=== PATIENT | male | born 1980 | race Caucasian/White ===

== ENCOUNTER 2019-10-13 10:46 | Emergency (ER) | payer SELFPAY ==
[2019-10-13 10:47] VITALS: BP 162/88; PULSE 99; RESP 16; TEMP 36.6; O2SAT 98; BMI 32.7
--- NOTE | 2019-10-13 10:57 | XR_ITS ---
WS: [id number] Portable AP upright chest, 10/13/2019 Clinical Data: tachy Comparison: None. Findings: No nodules, masses or effusions are seen. The heart is normal. The pulmonary vascularity is not increased. Patchy bibasilar opacities could represent early pneumonia or atelectasis. No pneumot horax is seen. XR/XR chest 1V portable [id number] Impression: 1. Bibasilar opacities which could represent minimal pneumonia and/or atelectas is. 2. Recommend repeat chest x-ray in 2-3 days.
--- NOTE | 2019-10-13 10:57 | ECG_ITS ---
Measurements Intervals [place] Rate: 94 P: 40 ME: 144 QRS: 83 QRSD: 86 T: 69 QT: 341 QTc: 426 SINUS RHYTHM No previous ECG available for comparison Electronically Signed On 10-14-2019 9:00:30 CDT by Moi Jacobo M.D. [id number]
--- NOTE | 2019-10-13 11:03 | ED_ITS ---
HPI - General Adult General: Chief complaint: General Medical Stated complaint: heart is racing Time Seen by Provider: 10/13/19 10:56 History of Present Illness: HPI narrative: Patient had flulike symptoms last week. Took Tamiflu that his dad did not use. Patient said he had been feeling okay for the last couple days. Drink couple cups of coffee this morning empty stomach and starting the shakes. chased a Cow Around in his barn a lot this morning then came in town ate some food. Continued with the shakes he has had fast heart rate just did not feel right denies any chest pain not really short of breath but he does feel tight denies fever chills. Has been drinking plenty of fluids. MD complaint: Tachycardia Onset (ago): hour(s) Severity: moderate Associated symptoms: Reports palpitations; Deny dyspnea, headache(s), nausea, rash or vomiting Review of Systems Narrative: Feels anxious Const: Denies: fever, chills or body aches Eyes: Denies: change in vision or blurry vision ENMT: Denies: throat pain or nasal congestion Card: Reports: palpitations Resp: Denies: shortness of breath, productive cough or non-productive cough GI: Denies: abdominal pain, nausea or vomiting : Denies: difficulty urinating Musc: Denies: extremity pain Skin/Breast: Denies: rash Neuro: Denies: headache Psych: Denies: anxiety or depression Kash/Lymph: Denies: easy bruising PFSH ED PFSH: Social History Smoking and tobacco status: current every day smoker Physical Exam Const: COMMON NORMALS: no apparent distress, average body habitus and oriented x3 HENMT: COMMON NORMALS: normocephalic HEAD & SCALP: normal to inspection and normocephalic FACE & SINUS: normal facial exam Eye: COMMON NORMALS: conjunctivae normal GENERAL EYE: normal appearance of both eyes CONJUNCTIVA: Yes conjunctivae normal Neck/C-Spine: COMMON NORMALS: no JVD Chest: COMMONS NORMALS: inspection of chest normal Resp: COMMON NORMALS: normal respiratory effort and clear to auscultation bilaterally AUSCULTATION: clear to auscultation bilaterally Cardio: COMMON NORMALS: no JVD, regular rate and regular rhythm RATE: regular rate RHYTHM: regular rhythm GI: COMMON NORMALS: normal to inspection, nondistended, normoactive bowel sounds Extremity: COMMON NORMALS: normal to inspection and full ROM Neuro: COMMON NORMALS: oriented x3 Course Vital Signs: Vital signs: Vital Signs Temperature 98 F 10/13/19 10:47 Pulse Rate 99 10/13/19 10:47 Respiratory Rate 16 10/13/19 10:47 Blood Pressure 162/88 10/13/19 10:47 Pulse Oximetry 98 10/13/19 10:47 MDM - General Adult MDM Narrative: Medical decision making narrative: Discussed x-ray results with patient the need for follow-up Lab Data: Labs: Lab Results 10/13/19 10/13/19 10/13/19 Range/Units 11:06 11:06 11:06 WBC 6.2 (4.0-10.0) 10^3/ uL RBC 4.96 (4.1-5.3) 10^6/u L Hgb 14.6 (11.7-16.6) g/dL Hct 44.1 (42.0-52.0) % MCV 88.9 (80-94) fL MCH 29.4 (28.0-34.0) pg MCHC 33.1 (30.0-36.0) g/dL RDW 13.4 (12.1-15.1) % Plt Count 294 (130-400) 10^3/c mm MPV 10.9 H (7.4-10.4) fL Neut % (Auto) 64.8 % Lymph % (Auto) 24.6 % [place] % (Auto) 7.6 % Eos % (Auto) 2.1 % Baso % (Auto) 0.6 % Neut # (Auto) 4.0 (1.8-7.7) 10^3/u L Lymph # (Auto) 1.5 (0.8-4.8) 10^3/u L [place] # (Auto) 0.5 (0.2-0.9) 10^3/u L Eos # (Auto) 0.1 (0.0-0.8) 10^3/u L Baso # (Auto) 0.0 (0.0-0.1) 10^3/u L Nucleated RBC % (a uto) 0 % Nucleated RBCs # 0.0 /100WBC Sodium 141 (136-145) mmol/L Potassium 3.9 (3.5-5.1) mmol/L Chloride 104 (98-107) mmol/L Carbon Dioxide 24 (22-29) mmol/L Anion Gap 16.9 (5-19) BUN 13 (6-20) mg/dL Creatinine 0.9 (0.7-1.2) mg/dL GFR Calculation 94.4 (90-130) mL/min Glucose 139 H (65-115) mg/dL Calculated Osmolal ity 290 (285-295) mOsm/k g Calcium 9.8 (8.5-10.5) mg/dL Total Bilirubin 0.3 (0.15-1.2) mg/dL AST 21 (0-40) U/L ALT 38 (0-41) U/L Alkaline Phosphata se 62 (40-130) IU/L Troponin T Gen 5 n g/L 6 (0-15) ng/mL Total Protein 7.2 (6.6-8.7) g/dL Albumin 4.2 (3.5-5.2) g/dL Globulin 3.0 (1.3-4.6) g/dL EKG Data^: EKG 1: EKG interpretation date: 10/13/19 Interpretation: NSR, 94 bpm Computer generated interpretation: Chest X-Ray 10/13/19 10:57 Impression: 1. Bibasilar opacities which could represent minimal pneumonia and/or atelectasis. 2. Recommend repeat chest x-ray in 2-3 days. Discharge Plan Discharge Patient Disposition: Home, Self-Care Clinical Impression: Bronchitis Condition: Stable Prescriptions: New Zithromax Z-Neil 250 mg tablet See Rx Instructions .ROUTE .COMPLEX Qty: 6 RF: 0 albuterol sulfate 90 mcg/actuation HFA aerosol inhaler 2 inh INHALATION Q4H PRN (Reason: shortness of breath or wheezing) Qty: 8.5 RF: 0 Discharge Orders: Discharge Order (Routine); Ordered 10/13/19 Ordered By: Geoff Wynne Referrals: Landry Frye MD [Primary Care Provider] - Discharge Diet: Usual diet Discharge Activity: Increase activity as tolerated Patient Instructions: Acute Bronchitis (ED) Activity Restrictions/Additional Instructions: Follow-up with medical provider in 2 to 3 days for repeat chest x-ray. take medications as prescribed. Return to the ER or your medical provider if condition worsens. Please read and understand discharge instructions. If any questions ask please. Coding Level of Care Code ED Knife Changer for Chg Fwd Exam Comprehensive
[2019-10-13 11:11] LABS: Basophils % 0.6 %; Eosinophils # 0.1 10^3/uL (0.0-0.8); Eosinophils % 2.1 %; Hematocrit 44.1 % (42.0-52.0); Hemoglobin 14.6 g/dL (11.7-16.6); Lymphocytes # 1.5 10^3/uL (0.8-4.8); Lymphocytes % 24.6 %; Mean Corpuscular HGB Conc 33.1 g/dL (30.0-36.0); Mean Corpuscular Hemoglobin 29.4 pg (28.0-34.0); Mean Corpuscular Volume 88.9 fL (80-94); Mean Platelet Volume 10.9 fL (7.4-10.4); Monocytes # 0.5 10^3/uL (0.2-0.9); Monocytes % 7.6 %; Neutrophils % 64.8 %; Nucleated Red Blood Cells % 0 %; Platelet Count 294 10^3/cmm (130-400); Red Blood Count 4.96 10^6/uL (4.1-5.3); Red Cell Distribution Width 13.4 % (12.1-15.1); White Blood Count 6.2 10^3/uL (4.0-10.0)
[2019-10-13 11:30] LABS: Alanine Aminotransferase 38 U/L (0-41); Albumin Level 4.2 g/dL (3.5-5.2); Alkaline Phosphatase 62 IU/L (40-130); Anion Gap 16.9 (5-19); Aspartate Amino Transferase 21 U/L (0-40); Blood Urea Nitrogen 13 mg/dL (6-20); Calcium 9.8 mg/dL (8.5-10.5); Carbon Dioxide 24 mmol/L (22-29); Chloride 104 mmol/L (98-107); Creatinine Clr Calc Pharmacy 150.4601; Glomerular Filtration Rate 94.4 mL/min (90-130); Glucose 139 mg/dL (65-115); Osmolality Calculated 290 mOsm/kg (285-295); Potassium 3.9 mmol/L (3.5-5.1); Sodium 141 mmol/L (136-145); Total Bilirubin 0.3 mg/dL (0.15-1.2); Total Protein 7.2 g/dL (6.6-8.7)
[2019-10-13 11:32] LABS: Troponin T (5th) Once 6 ng/mL (0-15)
[2019-10-13 12:28] VITALS: BP 141/90; PULSE 88; RESP 18; O2SAT 94
== END 2019-10-13 12:30 | disposition home or self-care (01) ==
PROVIDERS: Emergency Provider Nurse Practitioner Family; PCP Specialist
DX: J40 Bronchitis, not specified as acute or chronic (principal); F17.200 Nicotine dependence, unspecified, uncomplicated
CPT/HCPCS: 12345; 36415; 71045; 80053; 84484; 85025; 93005; 99282; 99283

== ENCOUNTER 2020-02-08 12:47 | Emergency (ER) | payer SELFPAY ==
[2020-02-08] VITALS (8 sets, daily range): BP systolic 113–141; BP diastolic 73–91; PULSE 75–90; RESP 16–23; TEMP 36.5; O2SAT 94–98; BMI 32.7
--- NOTE | 2020-02-08 12:51 | ECG_ITS ---
[facility] Test Date: 2020-02-08 Pat Name: Raj Krause Department: Room: Gender: Male Jira Developer: : 1980 Requested By: Cherrie Belcher Order Number: [id number] Alan MD: Nabil Munoz M.D. Measurements Intervals [place] Rate: 99 P: 25 PA: 137 QRS: 86 QRSD: 88 T: 44 QT: 330 QTc: 424 Interpretive Statements SINUS RHYTHM Compared to ECG 10/13/2019 10:55:20 No significant changes Electronically Signed On 02-08-2020 21:42:10 CDT by Nabil Munoz M.D. [id number] f
--- NOTE | 2020-02-08 12:51 | XRR_ITS ---
PROCEDURE INFORMATION: Exam: XR Chest, 1 View Exam date and time: 02/08/2020 12:52 PM Age: 39 years old Clinical indication: Chest pain; Type not specified; Additional info: Cp TECHNIQUE: Imaging protocol: XR of the chest Views: 1 view. COMPARISON: CR XR chest 1V portable [id number] 10/13/2019 11:08 AM FINDINGS: Lungs: Unremarkable. No consolidation. Pleural space: Unremarkable. No pleural effusion. No pneumothorax. Heart/Mediastinum: Negative for acute cardiac disease Bones/joints: Unremarkable. Comparison to prior examination bilateral lower lobe interstitial densities which were previously visible have now resolved. XR/XR chest 1V portable [id number] IMPRESSION: Negative chest examination
--- NOTE | 2020-02-08 14:00 | W.ED.CHESTPA ---
HPI - Chest Pain General: Chief Complaint: Chest Pain Stated Complaint: CP Time Seen by Provider: 02/08/20 13:54 Source: patient Mode of arrival: ambulatory Limitations: no limitations History of Present Illness: HPI narrative: 39-year-old male male who states he has been having some dizziness, chest pain over the last 3 to 4 hours. Patient states the pain is been a pressure type pain. Patient denies any shortness of breath. Patient states that happened while he is outside working today. He states it is improved since he has been here. He states his pain is currently a 1 out of 10. Denies any vomiting. MD complaint: chest pain Associated symptoms: Deny abdominal pain, dyspnea, fever(s), nausea or vomiting Review of Systems Const: Denies: fever(s), chills, body aches or change in appetite Eyes: Denies: blurry vision or eye discomfort ENMT: Denies: throat pain or dental pain Card: Reports: chest pain Resp: Denies: dyspnea GI: Denies: abdominal pain, nausea, vomiting or diarrhea : Denies: dysuria Musc: Denies: neck pain or back pain Skin/Breast: Denies: rash Neuro: Denies: headache(s) Psych: Denies: depression Kash/Lymph: Denies: easy bruising All/Imm: Denies: urticaria PFSH ED PFSH: Social History Smoking and tobacco status: current every day smoker Physical Exam Const: COMMON NORMALS: no acute distress, patient oriented x3 and healthy appearing HENMT: COMMON NORMALS: normocephalic and atraumatic HEAD & SCALP: normocephalic and atraumatic Eye: COMMON NORMALS: Equal, round and reactive pupils present and EOMs intact bilaterally PUPIL: Yes Equal, round and reactive pupils present Neck/C-Spine: COMMON NORMALS: full ROM and supple Chest: COMMONS NORMALS: normal inspection of the chest and normal palpation of entire chest wall Resp: COMMON NORMALS: normal respiratory effort, No retractions, No use of accessory muscles and clear to auscultation bilaterally AUSCULTATION: clear to auscultation bilaterally Cardio: COMMON NORMALS: regular rate, regular rhythm and No murmurs present (Cardio) RATE: regular rate RHYTHM: regular rhythm GI: COMMON NORMALS: Normal to inspection, nondistended, normoactive bowel sounds present, Soft to palpation, non-tender and no masses PALPATION: Yes Soft to palpation Extremity: COMMON NORMALS: normal to inspection and full ROM Neuro: COMMON NORMALS: patient oriented x3, moves all extremities and no focal motor deficits Psych: COMMON NORMALS: mental status grossly normal, Normal thought process present and cooperative THOUGHT PROCESS: Normal thought process present Skin: COMMON NORMALS: no rashes or lesions noted and no wounds GENERAL SKIN EXAM: no rashes or lesions noted Course Vital Signs: Vital signs: Vital Signs Temperature 97.7 F 02/08/20 12:50 Pulse Rate 82 02/08/20 17:22 Respiratory Rate 23 H 02/08/20 17:22 Blood Pressure 114/79 02/08/20 17:22 Pulse Oximetry 94 02/08/20 17:22 MDM - Chest Pain MDM Narrative: Medical decision making narrative: Raj presents with chest pain that is atypical in nature. He does have some tenderness that is likely muscular. Patient's initial and repeat troponins are negative. He feels improved here and I feel he is stable for discharge. X-ray is normal and he has no signs of pulmonary embolism. Patient is to follow-up with primary care doctor in 3 to 5 days and return if worsening. Lab Data: Labs: Lab Results 02/08/20 02/08/20 02/08/20 Range/Units 14:12 14:12 14:12 WBC 9.2 (4.0-10.0) 10^3/ uL RBC 5.01 (4.1-5.3) 10^6/u L Hgb 15.4 (11.7-16.6) g/dL Hct 47.8 (42.0-52.0) % MCV 95.4 H (80-94) fL MCH 30.7 (28.0-34.0) pg MCHC 32.2 (30.0-36.0) g/dL RDW 13.3 (12.1-15.1) % Plt Count 238 (130-400) 10^3/c mm MPV 10.9 H (7.4-10.4) fL Neut % (Auto) 73.9 % Lymph % (Auto) 16.9 % [place] % (Auto) 5.7 % Eos % (Auto) 2.5 % Baso % (Auto) 0.8 % Neut # (Auto) 6.8 (1.8-7.7) 10^3/u L Lymph # (Auto) 1.6 (0.8-4.8) 10^3/u L [place] # (Auto) 0.5 (0.2-0.9) 10^3/u L Eos # (Auto) 0.2 (0.0-0.8) 10^3/u L Baso # (Auto) 0.1 (0.0-0.1) 10^3/u L Nucleated RBC % (a uto) 0 % Nucleated RBCs # 0.0 /100WBC Sodium 141 (136-145) mmol/L Potassium 4.5 (3.5-5.1) mmol/L Chloride 106 (98-107) mmol/L Carbon Dioxide 25 (22-29) mmol/L Anion Gap 14.5 (5-19) BUN 12 (6-20) mg/dL Creatinine 1.0 (0.7-1.2) mg/dL GFR Calculation 83.6 L (90-130) mL/min Glucose 102 (65-115) mg/dL Calculated Osmolal ity 288 (285-295) mOsm/k g Calcium 9.7 (8.5-10.5) mg/dL Total Bilirubin 0.2 (0.15-1.2) mg/dL AST 13 (0-40) U/L ALT 21 (0-41) U/L Alkaline Phosphata se 57 (40-130) IU/L Troponin T Baselin e 6 (0-15) ng/L Troponin T 120 Min ambler (0-15) ng/L Total Protein 6.9 (6.6-8.7) g/dL Albumin 4.6 (3.5-5.2) g/dL Globulin 2.3 (1.3-4.6) g/dL /01/22 Range/Units 16:12 WBC (4.0-10.0) 10^3/ uL RBC (4.1-5.3) 10^6/u L Hgb (11.7-16.6) g/dL Hct (42.0-52.0) % MCV (80-94) fL MCH (28.0-34.0) pg MCHC (30.0-36.0) g/dL RDW (12.1-15.1) % Plt Count (130-400) 10^3/c mm MPV (7.4-10.4) fL Neut % (Auto) % Lymph % (Auto) % [place] % (Auto) % Eos % (Auto) % Baso % (Auto) % Neut # (Auto) (1.8-7.7) 10^3/u L Lymph # (Auto) (0.8-4.8) 10^3/u L [place] # (Auto) (0.2-0.9) 10^3/u L Eos # (Auto) (0.0-0.8) 10^3/u L Baso # (Auto) (0.0-0.1) 10^3/u L Nucleated RBC % (a uto) % Nucleated RBCs # /100WBC Sodium (136-145) mmol/L Potassium (3.5-5.1) mmol/L Chloride (98-107) mmol/L Carbon Dioxide (22-29) mmol/L Anion Gap (5-19) BUN (6-20) mg/dL Creatinine (0.7-1.2) mg/dL GFR Calculation (90-130) mL/min Glucose (65-115) mg/dL Calculated Osmolal ity (285-295) mOsm/k g Calcium (8.5-10.5) mg/dL Total Bilirubin (0.15-1.2) mg/dL AST (0-40) U/L ALT (0-41) U/L Alkaline Phosphata se (40-130) IU/L Troponin T Baselin e (0-15) ng/L Troponin T 120 Min ambler 6.00 (0-15) ng/L Total Protein (6.6-8.7) g/dL Albumin (3.5-5.2) g/dL Globulin (1.3-4.6) g/dL Imaging Data^: CXR: Radiologist's impression: [address] [address] XRay Report Signed Patient: Raj Krause Unit #: [id number] : 1980 Age/Sex: 39 / M ADM Date: 02/08/20 Loc: ER Room/Bed: Attending Dr: Ordering Provider/Ordering MD: Cherrie Belcher MD Date of Service: 02/08/20 Procedure(s): XR chest 1V portable [id number] Accession Number(s): [id number] Report Number: [id number] PROCEDURE INFORMATION: Exam: XR Chest, 1 View Exam date and time: 02/08/2020 12:52 PM Age: 39 years old Clinical indication: Chest pain; Type not specified; Additional info: Cp TECHNIQUE: Imaging protocol: XR of the chest Views: 1 view. COMPARISON: CR XR chest 1V portable [id number] 10/13/2019 11:08 AM FINDINGS: Lungs: Unremarkable. No consolidation. Pleural space: Unremarkable. No pleural effusion. No pneumothorax. Heart/Mediastinum: Negative for acute cardiac disease Bones/joints: Unremarkable. Comparison to prior examination bilateral lower lobe interstitial densities which were previously visible have now resolved. XR/XR chest 1V portable [id number] IMPRESSION: Negative chest examination EKG Data^: EKG 1: Attestation: I personally reviewed and interpreted this EKG as follows: EKG interpretation date: 02/08/20 EKG interpretation time: 12:58 Interpretation: nsr hr [address] or t wave abnormalities qrs 88 qtc 386 EKG 2: Attestation: I personally reviewed and interpreted this EKG as follows: EKG interpretation date: 02/08/20 EKG interpretation time: 15:37 Interpretation: nsr hr [address] or t wave abnormalities qrs 85 qtc 382 Discharge Plan Discharge Patient Disposition: Home, Self-Care Clinical Impression: Chest pain Qualifiers: Chest pain type: unspecified Qualified Code(s): R07.9 - Chest pain, unspecified Condition: Stable Prescriptions: No Action No Known Home Medications RF: 0 Discharge Orders: Discharge Order (Routine); Ordered 02/08/20 Ordered By: Cherrie Belcher Referrals: Landry Frye MD [Primary Care Provider] - Discharge Diet: Advance as tolerated Discharge Activity: Resume usual activity Patient Instructions: Chest Pain (ED) Discharge Date/Time: 02/08/20 17:25 Coding Level of Care Code ED Christmas Tree Farm Manager for Chg Fwd Exam Comprehensive
[2020-02-08 14:18] LABS: Basophils # 0.1 10^3/uL (0.0-0.1); Basophils % 0.8 %; Eosinophils # 0.2 10^3/uL (0.0-0.8); Eosinophils % 2.5 %; Hematocrit 47.8 % (42.0-52.0); Hemoglobin 15.4 g/dL (11.7-16.6); Lymphocytes # 1.6 10^3/uL (0.8-4.8); Lymphocytes % 16.9 %; Mean Corpuscular HGB Conc 32.2 g/dL (30.0-36.0); Mean Corpuscular Hemoglobin 30.7 pg (28.0-34.0); Mean Corpuscular Volume 95.4 fL (80-94); Mean Platelet Volume 10.9 fL (7.4-10.4); Monocytes # 0.5 10^3/uL (0.2-0.9); Monocytes % 5.7 %; Neutrophils # 6.8 10^3/uL (1.8-7.7); Neutrophils % 73.9 %; Nucleated Red Blood Cells % 0 %; Platelet Count 238 10^3/cmm (130-400); Red Blood Count 5.01 10^6/uL (4.1-5.3); Red Cell Distribution Width 13.3 % (12.1-15.1); White Blood Count 9.2 10^3/uL (4.0-10.0)
[2020-02-08 14:36] LABS: Alanine Aminotransferase 21 U/L (0-41); Albumin Level 4.6 g/dL (3.5-5.2); Alkaline Phosphatase 57 IU/L (40-130); Anion Gap 14.5 (5-19); Aspartate Amino Transferase 13 U/L (0-40); Blood Urea Nitrogen 12 mg/dL (6-20); Calcium 9.7 mg/dL (8.5-10.5); Carbon Dioxide 25 mmol/L (22-29); Chloride 106 mmol/L (98-107); Globulin 2.3 g/dL (1.3-4.6); Glomerular Filtration Rate 83.6 mL/min (90-130); Glucose 102 mg/dL (65-115); Osmolality Calculated 288 mOsm/kg (285-295); Potassium 4.5 mmol/L (3.5-5.1); Sodium 141 mmol/L (136-145); Total Bilirubin 0.2 mg/dL (0.15-1.2); Total Protein 6.9 g/dL (6.6-8.7)
[2020-02-08 14:37] LABS: Troponin(5th) Baseline 6 ng/L (0-15)
--- NOTE | 2020-02-08 14:51 | ECG_ITS ---
[facility] Test Date: 2020-02-08 Pat Name: Raj Krause Department: Room: Gender: Male Primer Boxer: : 1980 Requested By: Cherrie Belcher Order Number: [id number] Alan MD: Nabil Munoz M.D. Measurements Intervals [place] Rate: 79 P: 67 MS: 151 QRS: 84 QRSD: 85 T: 54 QT: 347 QTc: 399 Interpretive Statements SINUS RHYTHM Early repolarization change Compared to ECG 02/08/2020 12:58:31 No significant changes Electronically Signed On 02-08-2020 21:46:51 CDT by Nabil Munoz M.D. [id number]
[2020-02-08 16:37] LABS: Troponin 5 2HR Delta 0 ABS# (0-10)
== END 2020-02-08 17:25 | disposition home or self-care (01) ==
PROVIDERS: Emergency Provider Emergency Medicine; PCP Specialist
DX: R07.9 Chest pain, unspecified (principal); F17.210 Nicotine dependence, cigarettes, uncomplicated
CPT/HCPCS: 12345; 36415; 71045; 80053; 84484; 85025; 93005; 99283; 99284

== ENCOUNTER 2020-09-28 01:18 | Emergency (ER) | payer SELFPAY ==
[2020-09-28 01:22] VITALS: BP 139/85; PULSE 85; RESP 18; TEMP 36.7; O2SAT 97; BMI 33.3
--- NOTE | 2020-09-28 01:32 | ED_ITS ---
HPI - Abdominal Pain General: Chief Complaint: Abdominal Pain Stated Complaint: stomach issues, light headed, shakes Time Seen by Provider: 09/28/20 01:19 Source: patient Mode of arrival: ambulatory Limitations: no limitations History of Present Illness: HPI narrative: 40-year-old male states he had a fall last week related on his back. He states he had some flank pain throughout the week but got much worse tonight. He states he had a severe right lower quadrant abdominal pain and flank pain with nausea. Denies any worsening of proving factors. Denies any vomiting or diarrhea. Patient denies any fevers. States it is worse with movement improved with rest. Denies any mid back pain. Associated Symptoms: Denies chills, dysuria and fever(s) Review of Systems Const: Denies: fever(s), chills, body aches or change in appetite Eyes: Denies: blurry vision or eye discomfort ENMT: Denies: throat pain or dental pain Card: Denies: chest pain Resp: Denies: dyspnea GI: Reports: abdominal pain : Denies: dysuria Musc: Denies: neck pain or back pain Skin/Breast: Denies: rash Neuro: Denies: headache(s) Psych: Denies: depression Kash/Lymph: Denies: easy bruising All/Imm: Denies: urticaria PFSH ED PFSH: Social History Smoking and tobacco status: current every day smoker Physical Exam Const: COMMON NORMALS: no acute distress, patient oriented x3 and healthy appearing HENMT: COMMON NORMALS: normocephalic and atraumatic HEAD & SCALP: normocephalic and atraumatic Eye: COMMON NORMALS: Equal, round and reactive pupils present and EOMs intact bilaterally PUPIL: Yes Equal, round and reactive pupils present Neck/C-Spine: COMMON NORMALS: full ROM and supple Chest: COMMONS NORMALS: normal inspection of the chest and normal palpation of entire chest wall Resp: COMMON NORMALS: normal respiratory effort, No retractions, No use of accessory muscles and clear to auscultation bilaterally AUSCULTATION: clear to auscultation bilaterally Cardio: COMMON NORMALS: regular rate, regular rhythm and No murmurs present (Cardio) RATE: regular rate RHYTHM: regular rhythm GI: COMMON NORMALS: Normal to inspection, nondistended, normoactive bowel sounds present, Soft to palpation and no masses PALPATION: Yes Soft to palpation OTHER: Right flank and right lower quadrant tenderness Extremity: COMMON NORMALS: normal to inspection and full ROM Neuro: COMMON NORMALS: patient oriented x3, moves all extremities and no focal motor deficits Psych: COMMON NORMALS: mental status grossly normal, Normal thought process present and cooperative THOUGHT PROCESS: Normal thought process present Skin: COMMON NORMALS: no rashes or lesions noted and no wounds GENERAL SKIN EXAM: no rashes or lesions noted Course Vital Signs: Vital signs: Vital Signs Temperature 98.1 F 09/28/20 01:22 Pulse Rate 85 09/28/20 01:22 Respiratory Rate 18 09/28/20 01:22 Blood Pressure 139/85 09/28/20 01:22 Pulse Oximetry 97 09/28/20 01:22 MDM - Abdominal Pain MDM Narrative: Medical decision making narrative: Patient presents with right flank pain and right abdominal pain. He is tender over the right lower back likely a contusion. His CT scan shows no acute findings. He has no midline tenderness and is able ambulate without any problems. We will place him on Naprosyn and Robaxin. He is stable for discharge and return if worsening. He understands agrees to plan. Lab Data: Labs: Lab Results 09/28/20 09/28/20 09/28/20 Range/Units 01:35 01:35 01:47 WBC 7.7 (4.0-10.0) 10^3/ uL RBC 4.78 (4.1-5.3) 10^6/u L Hgb 14.7 (11.7-16.6) g/dL Hct 45.1 (42.0-52.0) % MCV 94.4 H (80-94) fL MCH 30.8 (28.0-34.0) pg MCHC 32.6 (30.0-36.0) g/dL RDW 13.4 (12.1-15.1) % Plt Count 248 (130-400) 10^3/c mm MPV 11.7 H (7.4-10.4) fL Neut % (Auto) 65.0 % Lymph % (Auto) 24.5 % [place] % (Auto) 6.6 % Eos % (Auto) 2.9 % Baso % (Auto) 0.7 % Neut # (Auto) 5.00 (1.8-7.7) 10^3/u L Lymph # (Auto) 1.9 (0.8-4.8) 10^3/u L [place] # (Auto) 0.5 (0.2-0.9) 10^3/u L Eos # (Auto) 0.2 (0.0-0.8) 10^3/u L Baso # (Auto) 0.1 (0.0-0.1) 10^3/u L Nucleated RBC % (a uto) 0 % Nucleated RBCs # 0.0 /100WBC Sodium 141 (136-145) mmol/L Potassium 4.2 (3.5-5.1) mmol/L Chloride 102 (98-107) mmol/L Carbon Dioxide 28 (22-29) mmol/L Anion Gap 15.2 (5-19) BUN 22 H (6-20) mg/dL Creatinine 1.1 (0.7-1.2) mg/dL GFR Calculation 74.5 L (90-130) mL/min Glucose 114 (65-115) mg/dL POC Glucose 114 H (70-110) mg/dL Calculated Osmolal ity 296 H (285-295) mOsm/k g Calcium 9.2 (8.5-10.5) mg/dL Total Bilirubin 0.3 (0.15-1.2) mg/dL AST 14 (0-40) U/L ALT 25 (0-41) U/L Alkaline Phosphata se 63 (40-130) IU/L Total Protein 7.4 (6.6-8.7) g/dL Albumin 4.6 (3.5-5.2) g/dL Globulin 2.8 (1.3-4.6) g/dL Lipase 29 (13-60) U/L Imaging Data ^: CT Abd/Pel: Attestation: I personally reviewed and interpreted this imaging study as follows: Radiologist's impression: [address] [address] [address] Scan Report Signed Patient: Raj Krause Unit #: [id number] : 1980 Age/Sex: 40 / M ADM Date: 09/28/20 Loc: ER Room/Bed: Attending Dr: Ordering Provider/Ordering MD: Cherrie Belcher MD Date of Service: 09/28/20 Procedure(s): CT abdomen pelvis w con* [id number] Accession Number(s): [id number] Report Number: [id number] PROCEDURE INFORMATION: Exam: CT Abdomen And Pelvis With Contrast Exam date and time: 09/28/2020 1:51 AM Age: 40 years old Clinical indication: Abdominal pain; Prior surgery; Patient HX: Periumbilical pain. History of umbilical hernia repair. Fall last Saturday. C/O low back pain. Iv leak mid injection during exam. ; Additional info: Abd pain TECHNIQUE: Imaging protocol: Computed tomography of the abdomen and pelvis with contrast. Radiation optimization: All CT scans at this facility use at least one of these dose optimization techniques: automated exposure control; mA and/or kV adjustment per patient size (includes targeted exams where dose is matched to clinical indication); or iterative reconstruction. Contrast material: OMNI 300; Contrast volume: 95 ml; Contrast route: INTRAVENOUS (IV); COMPARISON: No relevant prior studies available. RADIATION DOSE METRICS: Total DLP (mGy-cm): 1845.19 FINDINGS: Liver: Normal. No mass. Gallbladder and bile ducts: Several gallstones are present in the gallbladder. No biliary ductal dilatation. Pancreas: Normal. No ductal dilation. Spleen: Normal. No splenomegaly. Adrenal glands: Normal. No mass. Kidneys and ureters: Normal. No hydronephrosis. Stomach and bowel: Unremarkable. No obstruction. No mucosal thickening. Appendix: The appendix is normal. Intraperitoneal space: Unremarkable. No free air. No significant fluid collection. Vasculature: Unremarkable. No abdominal aortic aneurysm. Lymph nodes: Unremarkable. No enlarged lymph nodes. Urinary bladder: Unremarkable as visualized. Reproductive: Unremarkable as visualized. Bones/joints: Unremarkable. No acute fracture. Soft tissues: Moderate sized superior periumbilical ventral abdominal wall hernia containing fat is noted. A right inguinal hernia containing fat is also seen CT/CT abdomen pelvis w con* [id number] IMPRESSION: 1. Superior periumbilical ventral abdominal wall hernia containing fat. 2. Cholelithiasis. Discharge Plan Discharge Patient Disposition: Home Clinical Impression: Right flank pain Condition: Stable Prescriptions: New Robaxin-750 750 mg tablet 750 mg PO Q6H Qty: 30 RF: 0 Naprosyn 500 mg tablet 500 mg PO BID PRN (Reason: pain) Qty: 20 RF: 0 Discharge Orders: Discharge ED (Routine); Ordered 09/28/20 Ordered By: Cherrie Belcher Referrals: Landry Frye MD [Primary Care Provider] - Discharge Diet: Advance as tolerated Discharge Activity: Resume usual activity Patient Instructions: Abdominal Pain (ED) Coding Level of Care Code ED Facilities Maintenance Assistant for Chg Fwd Exam Comprehensive
[2020-09-28] MEDS: sodium chloride 0.9% 1,000 ML 999 ML IV (01:38)
--- NOTE | 2020-09-28 01:50 | CTR_ITS ---
PROCEDURE INFORMATION: Exam: CT Abdomen And Pelvis With Contrast Exam date and time: 09/28/2020 1:51 AM Age: 40 years old Clinical indication: Abdominal pain; Prior surgery; Patient HX: Periumbilical pain. History of umbilical hernia repair. Fall last Saturday. C/O low back pain. Iv leak mid injection during exam. ; Additional info: Abd pain TECHNIQUE: Imaging protocol: Computed tomography of the abdomen and pelvis with contrast. Radiation optimization: All CT scans at this facility use at least one of these dose optimization techniques: automated exposure control; mA and/or kV adjustment per patient size (includes targeted exams where dose is matched to clinical indication); or iterative reconstruction. Contrast material: OMNI 300; Contrast volume: 95 ml; Contrast route: INTRAVENOUS (IV); COMPARISON: No relevant prior studies available. RADIATION DOSE METRICS: Total DLP (mGy-cm): 1845.19 FINDINGS: Liver: Normal. No mass. Gallbladder and bile ducts: Several gallstones are present in the gallbladder. No biliary ductal dilatation. Pancreas: Normal. No ductal dilation. Spleen: Normal. No splenomegaly. Adrenal glands: Normal. No mass. Kidneys and ureters: Normal. No hydronephrosis. Stomach and bowel: Unremarkable. No obstruction. No mucosal thickening. Appendix: The appendix is normal. Intraperitoneal space: Unremarkable. No free air. No significant fluid collection. Vasculature: Unremarkable. No abdominal aortic aneurysm. Lymph nodes: Unremarkable. No enlarged lymph nodes. Urinary bladder: Unremarkable as visualized. Reproductive: Unremarkable as visualized. Bones/joints: Unremarkable. No acute fracture. Soft tissues: Moderate sized superior periumbilical ventral abdominal wall hernia containing fat is noted. A right inguinal hernia containing fat is also seen CT/CT abdomen pelvis w con* [id number] IMPRESSION: 1. Superior periumbilical ventral abdominal wall hernia containing fat. 2. Cholelithiasis. Radiation Dose CTDIVOL = (mGy): DLP = 1845.19 (mGy-cm)
[2020-09-28 01:51] LABS: Glucose Point of Care 114 mg/dL (70-110)
[2020-09-28 02:02] LABS: Alanine Aminotransferase 25 U/L (0-41); Albumin Level 4.6 g/dL (3.5-5.2); Alkaline Phosphatase 63 IU/L (40-130); Anion Gap 15.2 (5-19); Aspartate Amino Transferase 14 U/L (0-40); Blood Urea Nitrogen 22 mg/dL (6-20); Calcium 9.2 mg/dL (8.5-10.5); Carbon Dioxide 28 mmol/L (22-29); Chloride 102 mmol/L (98-107); Globulin 2.8 g/dL (1.3-4.6); Glomerular Filtration Rate 74.5 mL/min (90-130); Glucose 114 mg/dL (65-115); Lipase 29 U/L (13-60); Osmolality Calculated 296 mOsm/kg (285-295); Potassium 4.2 mmol/L (3.5-5.1); Sodium 141 mmol/L (136-145); Total Bilirubin 0.3 mg/dL (0.15-1.2); Total Protein 7.4 g/dL (6.6-8.7)
[2020-09-28] MEDS: iohexol 300 mg/mL 100 mL Btl IV (02:11)
[2020-09-28 02:12] LABS: Basophils # 0.1 10^3/uL (0.0-0.1); Basophils % 0.7 %; Eosinophils # 0.2 10^3/uL (0.0-0.8); Eosinophils % 2.9 %; Hematocrit 45.1 % (42.0-52.0); Hemoglobin 14.7 g/dL (11.7-16.6); Lymphocytes # 1.9 10^3/uL (0.8-4.8); Lymphocytes % 24.5 %; Mean Corpuscular HGB Conc 32.6 g/dL (30.0-36.0); Mean Corpuscular Hemoglobin 30.8 pg (28.0-34.0); Mean Corpuscular Volume 94.4 fL (80-94); Mean Platelet Volume 11.7 fL (7.4-10.4); Monocytes # 0.5 10^3/uL (0.2-0.9); Monocytes % 6.6 %; Nucleated Red Blood Cells % 0 %; Platelet Count 248 10^3/cmm (130-400); Red Blood Count 4.78 10^6/uL (4.1-5.3); Red Cell Distribution Width 13.4 % (12.1-15.1); White Blood Count 7.7 10^3/uL (4.0-10.0)
[2020-09-28 03:19] VITALS: BP 131/82; PULSE 85; RESP 18; O2SAT 95
== END 2020-09-28 03:19 | disposition home or self-care (01) ==
PROVIDERS: Emergency Provider Emergency Medicine; PCP Specialist
DX: R10.9 Unspecified abdominal pain (principal); F17.210 Nicotine dependence, cigarettes, uncomplicated
CPT/HCPCS: 36416; 74177; 80053; 82962; 83690; 85025; 96360; 99283; J7030; Q9967

== ENCOUNTER 2020-10-01 19:39 | Emergency (ER) | payer SELFPAY ==
--- NOTE | 2020-10-01 03:22 | XRR_ITS ---
PROCEDURE INFORMATION: Exam: XR Chest Exam date and time: 10/01/2020 10:35 PM Age: 40 years old Clinical indication: Other: Palpitations TECHNIQUE: Imaging protocol: XR of the chest Views: 1 view. COMPARISON: CR XR chest 1V portable [id number] 02/08/2020 12:59 PM FINDINGS: Lungs: Unremarkable. No consolidation. Pleural spaces: Unremarkable. No pleural effusion. No pneumothorax. Heart/Mediastinum: Unremarkable. No cardiomegaly. Bones/joints: Unremarkable. XR/XR chest 1V portable [id number] IMPRESSION: No acute findings.
[2020-10-01 19:49] VITALS: BP 149/81; PULSE 87; RESP 16; TEMP 36.8; O2SAT 98; BMI 33.3
--- NOTE | 2020-10-01 20:47 | ECG_ITS ---
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 Measurements Intervals [place] Rate: 86 P: 73 AL: 149 QRS: 89 QRSD: 97 T: 77 QT: 359 QTc: 432 Interpretive Statements SINUS RHYTHM Compared to ECG 02/08/2020 15:37:57 Early repolarization no longer present Electronically Signed On 10-02-2020 17:08:04 DIRECTOR OF QUALITY by Clifton Campos M.D. [email or web address] ([id number] f
[2020-10-01 22:06] LABS: Basophils % 0.6 %; Eosinophils # 0.3 10^3/uL (0.0-0.8); Hematocrit 44.5 % (42.0-52.0); Hemoglobin 14.6 g/dL (11.7-16.6); Lymphocytes # 1.9 10^3/uL (0.8-4.8); Lymphocytes % 26.2 %; Mean Corpuscular HGB Conc 32.8 g/dL (30.0-36.0); Mean Corpuscular Hemoglobin 31.3 pg (28.0-34.0); Mean Corpuscular Volume 95.5 fL (80-94); Mean Platelet Volume 11.4 fL (7.4-10.4); Monocytes # 0.5 10^3/uL (0.2-0.9); Monocytes % 6.9 %; Neutrophils # 4.48 10^3/uL (1.8-7.7); Nucleated Red Blood Cells % 0 %; Platelet Count 237 10^3/cmm (130-400); Red Blood Count 4.66 10^6/uL (4.1-5.3); Red Cell Distribution Width 13.2 % (12.1-15.1); White Blood Count 7.2 10^3/uL (4.0-10.0)
[2020-10-01 22:24] LABS: Alanine Aminotransferase 17 U/L (0-41); Albumin Level 4.4 g/dL (3.5-5.2); Alkaline Phosphatase 70 IU/L (40-130); Anion Gap 10.9 (5-19); Aspartate Amino Transferase 12 U/L (0-40); Blood Urea Nitrogen 14 mg/dL (6-20); Calcium 9.1 mg/dL (8.5-10.5); Carbon Dioxide 27 mmol/L (22-29); Chloride 103 mmol/L (98-107); Glomerular Filtration Rate 83.2 mL/min (90-130); Glucose 106 mg/dL (65-115); Magnesium 2.1 mg/dL (1.7-2.3); Osmolality Calculated 285 mOsm/kg (285-295); Potassium 3.9 mmol/L (3.5-5.1); Sodium 137 mmol/L (136-145); Total Bilirubin 0.2 mg/dL (0.15-1.2); Total Protein 6.4 g/dL (6.6-8.7)
[2020-10-01 22:28] LABS: Troponin(5th) Baseline 6 ng/L (0-15)
--- NOTE | 2020-10-01 22:47 | ECG_ITS ---
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 Measurements Intervals [place] Rate: 74 P: 71 NE: 159 QRS: 88 QRSD: 88 T: 72 QT: 359 QTc: 399 Interpretive Statements SINUS RHYTHM Compared to ECG 10/01/2020 19:47:51 No significant changes Electronically Signed On 10-03-2020 19:03:20 PULMONARY CARE NURSE by Clifton Campos M.D. [id number]
[2020-10-01 23:05] VITALS: BP 117/73; PULSE 79; RESP 20; O2SAT 94
[2020-10-02 00:23] LABS: Troponin 5 2HR Delta 0 ABS# (0-10)
[2020-10-02 00:51] VITALS: BP 122/72; PULSE 82; RESP 16; O2SAT 96
[2020-10-02 01:43] LABS: Thyroid Stimulating Hormone 1.47 uIU/mL (0.27-4.20)
--- NOTE | 2020-10-02 03:11 | W.ED.ARRPALP ---
HPI - Arrhythmia/Palpitations General: Chief Complaint: Arrhythmia/Palpitations Stated Complaint: irregular heart rate, chest pressure Time Seen by Provider: 10/01/20 22:35 History of Present Illness: HPI narrative: Healthy 40-year-old male presents with an episode of palpitations that lasted quite a while this evening. During light activity. Some chest pressure involved. No diaphoresis, significant shortness of breath, or vomiting. He had similar symptoms around a year ago. Currently symptoms are resolved. MD complaint: rapid heart beat, heart racing and palpitations Onset (ago): hour(s) Associated symptoms: Deny anxiety, nausea or vomiting Review of Systems Const: Denies: fever(s) Eyes: Denies: change in vision ENMT: Denies: odynophagia or sinus pain Card: Reports: chest pain and palpitations; Denies: irregular heart rhythm or edema Resp: Denies: dyspnea, productive cough or non-productive cough GI: Denies: abdominal pain, nausea, vomiting or melena : Denies: difficulty urinating or hematuria Musc: Denies: neck pain or joint warmth Skin/Breast: Denies: rash or erythema Neuro: Denies: headache(s), dizziness or vertigo Psych: Denies: anxiety PFSH ED PFSH: Social History Smoking and tobacco status: current every day smoker Physical Exam Const: GENERAL APPEARANCE: well developed ORIENTATION/CONSCIOUSNESS: Yes oriented to person, Yes oriented to place and Yes oriented to time HENMT: COMMON NORMALS: external ears normal and Normal external nose present FACE & SINUS: normal facial exam NOSE: Normal external nose present and No nasal discharge present EXTERNAL EAR: Yes external ears normal Eye: COMMON NORMALS: Equal, round and reactive pupils present, EOMs intact bilaterally and conjunctivae normal EYELID: eyelids normal CONJUNCTIVA: Yes conjunctivae normal PUPIL: Yes Equal, round and reactive pupils present Neck/C-Spine: GENERAL: No tracheal deviation Chest: COMMONS NORMALS: normal inspection of the chest CHEST: No tenderness Resp: COMMON NORMALS: clear to auscultation bilaterally EFFORT & INSPECTION: No tachypneic, No respiratory distress, No retractions, No uses accessory muscles and No tracheal deviation AUSCULTATION: clear to auscultation bilaterally, no rhonchi, no wheezes and lung sounds not diminished Cardio: COMMON NORMALS: regular rate and regular rhythm RATE: regular rate RHYTHM: regular rhythm HEART SOUNDS: no murmurs PERIPHERAL PULSES: radial pulses present GI: INSPECTION: No abdominal distension AUSCULTATION: No Hyperactive bowel sounds present and No Hypoactive bowel sounds present PALPATION: No Guarding due to palpation present (GI) and No Rigid due to palpation PERCUSSION: no dullness to percussion and no tympanic to percussion Neuro: SENSORIUM/ORIENTATION: Yes oriented to person, Yes oriented to place and Yes oriented to time Psych: COMMON NORMALS: mental status grossly normal Skin: COMMON NORMALS: no rashes or lesions noted GENERAL SKIN EXAM: no rashes or lesions noted Course Vital Signs: Vital signs: Vital Signs Temperature 98.2 F 10/01/20 19:49 Pulse Rate 82 10/02/20 00:51 Respiratory Rate 16 10/02/20 00:51 Blood Pressure 122/72 10/02/20 00:51 Pulse Oximetry 96 10/02/20 00:51 MDM - Arrhythmia/Palpitations MDM Narrative: Medical decision making narrative: Chest x-ray is negative. EKG shows a normal sinus rhythm with normal axis and no acute ST changes. This is at 0 and 2 hours. Troponin did not rise at 2 hours and remains normal. Hemoglobin is 14.6. White count 7.2. Electrolytes are normal. Symptoms are resolved. We will allow him home. We will set him up for a stress as an outpatient and to follow-up with his doctor. Lab Data: Labs: Lab Results 10/01/20 10/01/20 10/01/20 Range/Units 21:52 21:52 21:52 WBC 7.2 (4.0-10.0) 10^3/ uL RBC 4.66 (4.1-5.3) 10^6/u L Hgb 14.6 (11.7-16.6) g/dL Hct 44.5 (42.0-52.0) % MCV 95.5 H (80-94) fL MCH 31.3 (28.0-34.0) pg MCHC 32.8 (30.0-36.0) g/dL RDW 13.2 (12.1-15.1) % Plt Count 237 (130-400) 10^3/c mm MPV 11.4 H (7.4-10.4) fL Neut % (Auto) 62.0 % Lymph % (Auto) 26.2 % Becker % (Auto) 6.9 % Eos % (Auto) 4.0 % Baso % (Auto) 0.6 % Neut # (Auto) 4.48 (1.8-7.7) 10^3/u L Lymph # (Auto) 1.9 (0.8-4.8) 10^3/u L Becker # (Auto) 0.5 (0.2-0.9) 10^3/u L Eos # (Auto) 0.3 (0.0-0.8) 10^3/u L Baso # (Auto) 0.0 (0.0-0.1) 10^3/u L Nucleated RBC % (a uto) 0 % Nucleated RBCs # 0.0 /100WBC Sodium 137 (136-145) mmol/L Potassium 3.9 (3.5-5.1) mmol/L Chloride 103 (98-107) mmol/L Carbon Dioxide 27 (22-29) mmol/L Anion Gap 10.9 (5-19) BUN 14 (6-20) mg/dL Creatinine 1.0 (0.7-1.2) mg/dL GFR Calculation 83.2 L (90-130) mL/min Glucose 106 (65-115) mg/dL Calculated Osmolal ity 285 (285-295) mOsm/k g Calcium 9.1 (8.5-10.5) mg/dL Magnesium 2.1 (1.7-2.3) mg/dL Total Bilirubin 0.2 (0.15-1.2) mg/dL AST 12 (0-40) U/L ALT 17 (0-41) U/L Alkaline Phosphata se 70 (40-130) IU/L Troponin T Baselin e 6 (0-15) ng/L Troponin T 120 Min [place] (0-15) ng/L Delta Troponin T (0-10) ABS# Total Protein 6.4 L (6.6-8.7) g/dL Albumin 4.4 (3.5-5.2) g/dL Globulin 2.0 (1.3-4.6) g/dL TSH (0.27-4.20) uIU/ mL 10/01/20 10/02/20 Range/Units 23:58 00:39 WBC (4.0-10.0) 10^3/ uL RBC (4.1-5.3) 10^6/u L Hgb (11.7-16.6) g/dL Hct (42.0-52.0) % MCV (80-94) fL MCH (28.0-34.0) pg MCHC (30.0-36.0) g/dL RDW (12.1-15.1) % Plt Count (130-400) 10^3/c mm MPV (7.4-10.4) fL Neut % (Auto) % Lymph % (Auto) % Becker % (Auto) % Eos % (Auto) % Baso % (Auto) % Neut # (Auto) (1.8-7.7) 10^3/u L Lymph # (Auto) (0.8-4.8) 10^3/u L Becker # (Auto) (0.2-0.9) 10^3/u L Eos # (Auto) (0.0-0.8) 10^3/u L Baso # (Auto) (0.0-0.1) 10^3/u L Nucleated RBC % (a uto) % Nucleated RBCs # /100WBC Sodium (136-145) mmol/L Potassium (3.5-5.1) mmol/L Chloride (98-107) mmol/L Carbon Dioxide (22-29) mmol/L Anion Gap (5-19) BUN (6-20) mg/dL Creatinine (0.7-1.2) mg/dL GFR Calculation (90-130) mL/min Glucose (65-115) mg/dL Calculated Osmolal ity (285-295) mOsm/k g Calcium (8.5-10.5) mg/dL Magnesium (1.7-2.3) mg/dL Total Bilirubin (0.15-1.2) mg/dL AST (0-40) U/L ALT (0-41) U/L Alkaline Phosphata se (40-130) IU/L Troponin T Baselin e (0-15) ng/L Troponin T 120 Min [place] 6.00 (0-15) ng/L Delta Troponin T 0 (0-10) ABS# Total Protein (6.6-8.7) g/dL Albumin (3.5-5.2) g/dL Globulin (1.3-4.6) g/dL TSH 1.47 (0.27-4.20) uIU/ mL Discharge Plan Discharge Patient Disposition: Home Clinical Impression: Palpitations Condition: Stable Prescriptions: No Action Robaxin-750 750 mg tablet 750 mg PO Q6H Qty: 30 RF: 0 Naprosyn 500 mg tablet 500 mg PO BID PRN (Reason: pain) Qty: 20 RF: 0 Discharge Orders: Discharge ED (Routine); Ordered 10/02/20 Ordered By: Mario Jo Referrals: Johann Hough MD [Primary Care Provider] - 4-7 days Discharge Diet: Advance as tolerated Discharge Activity: Increase activity as tolerated Patient Instructions: Palpitations (ED) Activity Restrictions/Additional Instructions: Return to the emergency department for any repeat episodes of chest pain, palpitations or pounding heartbeat, shortness of breath, other concerning symptoms. Referral for case management has been placed for a stress test. You should get a call by Saturday regarding setting this up. If you do not, call [phone] and ask for the ER family independence case manager. Coding Level of Care Code ED Ergonomics Technician for Amanda Donahue
--- NOTE | 2020-10-03 14:32 | DCPLANNER ---
manager social responsibility had message to schedule an outpatient stress test for patient. manager social responsibility faxed order for stress test to centralized scheduling, will call for appointment information.
--- NOTE | 2020-10-04 15:51 | DCPLANNER ---
Patient has a follow up appointment scheduled for Saturday, October 12, 2020 at 10:00 for an outpatient stress test.
--- NOTE | 2020-10-26 08:03 | DCPLANNER ---
Patient had a stress scheduled for 10.12.20 - patient did attend stress test.
== END 2020-10-02 00:48 | disposition home or self-care (01) ==
PROVIDERS: Emergency Provider Emergency Medicine; PCP Family Medicine
DX: R00.2 Palpitations (principal); F17.210 Nicotine dependence, cigarettes, uncomplicated
CPT/HCPCS: 71045; 80053; 83735; 84443; 84484; 85025; 93005; 99283

== ENCOUNTER 2020-10-12 07:29 | Outpatient (CLI) | payer SELFPAY ==
[2020-10-12 07:31] VITALS: BMI 33.3
--- NOTE | 2020-10-12 07:41 | NMCV_ITS ---
NM darby perf SPECT r/s* [id number] KrausePaul drakein Age: 40 Gender: M : 1980 Exam Date: 10/12/2020 08:31 Ordering Phys: Mario Jo DO Technologist: SHAGUFTA Cooper Exam Location: [facility] Indications: CHEST PAIN/ PALPITATIONS STRESS TEST Please see separate stress test report in [facility] for full findings IMAGE PROTOCOL Rest/Stress 1 Exercise Day Radiopharmaceutical Dose (mCi) Administration Site Administered by Rest: Tc-99m 10.7 IV SHAGUFTA Mcintyre Sestamibi Stress:Tc-99m 33.0 IV SHAGUFTA Mcintyre Sestamibi Rest: 12-Oct-2020 60 Discovery 630 Stress: 12-Oct-2020 15 Discovery 630 Radiopharmaceutical was injected at 85 % maximum heart rate. Images obtained in supine and prone position. SPECT RESULTS Technical Quality: Excellent Raw Data Analysis: Normal Image Corrections: No attenuation or motion correction applied Summed Stress Score: 0 Summed Rest Score: 0 Summed Difference Score: 0 PERFUSION FINDINGS Small area of slightly decreased tracer uptake was noted in the basal, mid and apical inferior wall region, with no significant reversibility. FUNCTIONAL RESULTS (calculated via Gated SPECT) Stress Image LV EF (%): 67 Stress EDV (mL):99 TID: 0.7 Stress ESV (mL):33 FUNCTIONAL FINDINGS: Segmental wall motion analysis revealing no gross wall motion normalities IMPRESSIONS 1. Myocardial perfusion imaging revealing a small area of persistent decreased tracer uptake in the inferior wall region, suggestive of myocardial scarring versus attenuation artifact. 2. Normal LV ejection fraction 67%. 3. LV wall motion analysis revealing no gross wall motion normalities. 4. Normal LV volume. No significant coronary ischemia, based on the above findings Dr Nabil Munoz MD FACC (Electronically Signed) Final Date: 12 October 2020 22:49 S
--- NOTE | 2020-10-12 07:41 | ECG_ITS ---
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 Interpretive Statements NAME OF STUDY: EXERCISE SESTAMIBI STRESS TEST INDICATION: Chest Pain; PalpitationsRESULTS TO DR DE LEON PROCEDURE: The baseline electrocardiogram showed [normal sinus rhythm with features of early repolarization in the inferolateral leads . At the baseline, the patient's blood pressure was 112/77 mm Hg with a heart rate of 96. The patient exercised for 11 minutes and 31 seconds on a standard Fernando protocol. Patient attained a maximum heart rate of 164 beats per minute( 90 % of the maximum predicted heart rate) with a blood pressure at the peak exercise of 211/83 mm Hg. The EKG at the peak exercise revealed no significant changes. Patient did not have any chest pain or any significant arrhythmis with the exercise Sestamibi was injected 1 minute prior to the peak exercise During the recovery phase, there were no new changes. Blood pressure at the end of the recovery phase was 112/76 mm Hg with a heart rate of 107 per minute. CONCLUSION: 1. No significant EKG changes with the EKG response to treadmill exercise 2. No exercise-induced chest pain or cardiac arrhythmia 3. Good exercise tolerance, attained a maximum of 13.5 METs. 4. Hypertensive response to exercise 5. Sestamibi/Sestamibi perfusion results pending; see separate report. Electronically Signed On 10-20-2020 8:58:40 CDT by Nabil Munoz M.D. [id number]
[2020-10-12 09:36] VITALS: BP 112/76; PULSE 107
== END 2020-10-12 07:30 | disposition home or self-care (01) ==
PROVIDERS: PCP Family Medicine; Visit Provider Emergency Medicine
DX: R07.9 Chest pain, unspecified (principal); R00.2 Palpitations; I10 Essential (primary) hypertension
CPT/HCPCS: 78452; 93017; A9500

== ENCOUNTER → 2021-03-24 11:02 | Outpatient (BNVA) | payer OTHER, SELFPAY | PROVIDERS: PCP Family Medicine; Visit Provider Surgery | DX: Z20.822 Contact with and (suspected) exposure to COVID-19 (principal) | CPT/HCPCS: 87635 ==

== ENCOUNTER 2021-03-30 07:23 | Day surgery (SDC) | payer SELFPAY ==
[2021-03-29 10:50] VITALS: BMI 32.7
[2021-03-30] VITALS (9 sets, daily range): BP systolic 121–140; BP diastolic 69–86; PULSE 64–91; RESP 14–20; TEMP 36.3–36.8; O2SAT 92–97
[2021-03-30] MEDS: sodium chloride 0.9% 1,000 ML 30 ML IV (07:44)
--- NOTE | 2021-03-30 08:15 | ANES.PREANE2 ---
Pre-Anesthetic Assessment Pre-Anesthetic Assessment: Height/Weight: Height 1.88 m Weight 115.666 kg Temp Pulse Resp BP Pulse Ox 98.2 F 91 18 131/86 95 03/30/21 07:32 03/30/21 07:32 03/30/21 07:32 03/30/21 07:32 03/30/21 07:32 Proposed Procedure: Operation Date: 03/30/21 09:00 Proposed Procedures p Ventral Hernia Repair (Open) w/ Mesh [id number] K43.2(Not Applicable) - Juan Ramon Degroot MD Was Beta Denise taken within 24 hours: N/A Was Clonidine taken within 24 hours: N/A Last intake: Intake Last Liquid Date 03/29/21 Last Liquid Time 22:30 Last Solid Date 03/29/21 Last Solid Time 22:30 Social: Social History: Alcohol and Tobacco Exam: Pre-Anes Outpt Exam: alert, oriented x 3 and regular rate & rhythm Airway: Submandibular: WNL Cervical ROM: WNL MP: 2 Dentition: Full Additional comments: Full lund Pulmonary: Pulmonary: COPD Metabolic: Metabolic: Morbid obesity Anesthetic Plan: ASA status: 3 Anesthesia: Choice Risk of > 500 ml blood loss (7ml/kg in children): No Meds/Allergies Current Medications: Current Medications Generic Name Dose Route Start Last Admin Trade Name Freq PRN Reason Stop Dose Admin Sodium Chloride 1,000 mls @ 30 ml s/hr 03/30/21 07:30 03/30/21 07:44 Sodium Chloride 0.9% IV 03/31/21 07:29 30 mls/hr .Q24H JAIR Administration PFSH Anesthesia PFSH: Family History Other Adopted Social History Smoking and tobacco status: current every day smoker Data Anesthesia Cardiac Studies: No Data to Display
--- NOTE | 2021-03-30 08:59 | W.PM.OPSUD ---
Surgery/Procedure H&P Update DATE OF PROCEDURE: March 30, 2021 DATE H&P PERFORMED: 03/06/21 H&P UPDATE INFORMATION: No changes to prior documentation PREOP DIAGNOSIS: Recurrent ventral hernia. PLANNED PROCEDURE: Operation Date: 03/30/21 09:00 Proposed Procedures p Ventral Hernia Repair (Open) w/ Mesh [id number] K43.2(Not Applicable) - Juan Ramon Degroot MD
--- NOTE | 2021-03-30 10:33 | PM.OP ---
Operative Report Date of procedure: March 30, 2021 Pre-op Diagnosis: Recurrent ventral hernia. Post-op diagnosis: same Procedure Done: Repair of incarcerated Ventrio recurrent ventral hernia with mesh. Implants: 4.5 inch round Ventrio mesh. Specimens removed/disposition: Incarcerated hernia sac with omental contents. Surgeon: Juan Ramon Degroot Anesthesia: General Estimated blood loss (mL): 5 Complications: None. Condition: stable Disposition: PACU Procedure: The patient was brought to the operating room and was placed in a supine position on the operating room table. General endotracheal anesthesia was induced. The abdomen was prepped and draped in a sterile fashion. A combination of 1% lidocaine with 1 to 100,000 parts epinephrine and 0.5% bupivacaine was used for local anesthesia throughout the procedure. The patient's previous transverse scar above the umbilicus and slightly to the right side was excised sharply. Cautery was then used to divide the subcutaneous tissue and the hernia sac was identified. This was freed on all sides down to the fascia where eventually the sac was opened and was found to contain some incarcerated omentum that could not be reduced. The omentum was divided by serially ligating the omentum with ties of 2-0 Vicryl. The excess omentum incarcerated in the hernia sac along with the sac itself was excised and was sent as a specimen. The remaining defect was a 5 to 6 cm fairly round defect. It was apparent that almost the entire previous hernia defect had come back open with sutures of 0 Prolene having been pulled out on either side, but still appeared to be intact otherwise. The wound was irrigated with saline. All of the adhesions on the underside of the fascia were freed up. A 4.5 inch round piece of Ventrio mesh was then introduced into the abdominal cavity and was brought up to the abdominal wall with some through and through sutures of #1 Prolene. Some sutures of 0 Prolene were then used to bring the remaining edges of the fascia together over the top of the mesh. This seemed to provide a very good closure with reinforcement of the mesh underneath that was not under any undue tension. The wound was irrigated with saline once again. The subcutaneous tissue was brought together with several interrupted sutures of 3-0 Vicryl and the skin was finally approximated using a running subcuticular suture of 3-0 Vicryl. Benzoin and Steri-Strips were placed over the incision and a sterile bandage followed. The patient was taken to the recovery area in stable condition postoperatively.
--- NOTE | 2021-03-30 16:25 | ANE.PACU2 ---
Inpatient post-anesthesia follow up: Airway intact: Yes Vital signs: Temperature 97.4 F Pulse Rate 64 Respiratory Rate 18 Blood Pressure 121/74 Pulse Oximetry 95 Oxygen Delivery Me thod Room Air Oxygen Flow Rate 1 Fraction of Inspir ed Oxygen Hydration adequate: Yes Nausea and vomiting: No Pain level: 2 Mental status: Baseline
== END 2021-03-30 11:40 | disposition home or self-care (01) ==
PROVIDERS: PCP Family Medicine; Visit Provider Surgery
PROC: 0WQF0ZZ Repair Abdominal Wall, Open Approach (ICD-10-PCS; CPT 49566; principal; 2021-03-30 09:00)
DX: K43.6 Other and unspecified ventral hernia with obstruction, without gangrene (principal); J44.9 Chronic obstructive pulmonary disease, unspecified; E66.01 Morbid (severe) obesity due to excess calories; Z68.32 Body mass index [BMI] 32.0-32.9, adult; F17.210 Nicotine dependence, cigarettes, uncomplicated
CPT/HCPCS: 49566; 88302; 96365; J0690; J1100; J2405; J2704; J2710; J3010; J3490; J7030